=== PATIENT | female | born 1980 | race Caucasian/White ===

== ENCOUNTER 2017-03-14 07:10 | Day surgery (SDC) | payer BC ==
[2017-03-09 08:06] LABS: BUN (BLOOD UREA NITROGEN) 20 MG/DL (6-23); CALCIUM, SERUM 8.8 MG/DL (8.5-10.4); CHLORIDE, SERUM 106 MMOL/L (96-112); CO2 (CARBON DIOXIDE) 29 MMOL/L (24-34); CREATININE 0.76 MG/DL (0.55-1.02); GFR AFRICAN AMERICAN 118 ML/MIN (>=60); GFR NON AFRICAN AMERICAN 102 ML/MIN (>=60); GLUCOSE, SERUM 100 MG/DL (60-99); POTASSIUM, SERUM 3.5 MMOL/L (3.5-5.3); SODIUM, SERUM 138 MMOL/L (135-148)
--- NOTE | ~2017-03-14 | OP ---
Record Of Operation [facility] [address] [place]. [address] NAME: PAIGE GRANDE : [birth year] STATUS : [facility]#: [id number] AGE: 36 ADM/REG DATE : 03/14/17 MR#: [id number] REPORT SERV DATE: 03/14/17 DICTATED BY: JARRELL SANTA DATE: 03/14/17 REPORT STATUS : Draft TRANSCRIBED BY: PHYLLIS DATE: 03/14/17 DATE OF PROCEDURE: PREOPERATIVE DIAGNOSES: 1. L3-4 and L5-S1 facet arthropathy. 2. Status post fusion at L4-5. POSTOPERATIVE DIAGNOSES: 1. L3-4 and L5-S1 facet arthropathy. 2. Status post fusion at L4-5. PROCEDURE: 1. Microscopic navigation-assisted surgery. 2. Mini-open left and right L3-4 and L5-S1 medial branch and dorsal rhizotomy and ablation. SKY CAP: Toribio Reed. ANESTHESIA: General. ESTIMATED BLOOD LOSS: 20 mL. INDICATIONS FOR SURGERY: A 36-year-old female with prior L4-5 fusions elsewhere. The patient has developed severe adjacent segment degeneration at both L3-4 and L5-S1. She has severe disk degeneration. There is also marked facet arthropathy. She has predominantly back pain with some pseudoradicular pain, but does not have any major stenosis. She has tried all forms of conservative care. She had a fluoro-guided injection of the joint, which gave a dramatic improvement in pain both at L3-4 and L5-S1. To try to obviously bring about some form of relief and particularly to buy her extra time and essentially such a young age, I recommended the above surgery rather than additional thoughts of consideration of fusion. The patient voiced understanding and wanted to proceed. I did explain to her the risks, which include but not limited to infection. There could be no guarantee that this would give her significant relief. She may develop continued deterioration and often require additional surgery including up to arthrodesis. Perioperative complications such as UTI, PE, pneumonia, NV, CVA, etc., were explained. Consent form is signed. DESCRIPTION OF PROCEDURE: The patient was identified in preop holding area. Antibiotic prophylaxis was given. The patient was brought to the operative suite. General anesthetic including endotracheal intubation was administered. She was placed prone on a Darrell spine frame. Bony prominences were carefully padded. Thoracolumbar spine was scrubbed with Hibiclens solution. DuraPrep was painted. Sterile drapes were applied. Because of the complexity of surgery and the need to identify correct level of surgery intraoperatively as well as desire to carry out the safest most precise dissection, I felt intraoperative navigation was mandatory. Record Of Operation [facility] [address] [place] [id number] NAME: PAIGE GRANDE : [birth year] STATUS : [facility]#: [id number] AGE: 36 ADM/REG DATE : 03/14/17 MR#: [id number] REPORT SERV DATE: 03/14/17 DICTATED BY: JARRELL SANTA DATE: 03/14/17 REPORT STATUS : Draft TRANSCRIBED BY: PHYLLIS DATE: 03/14/17 A small stab wound was carried out at the right posterior superior iliac spine. A percutaneous pin with navigational frame attached was inserted in the PSIS. Intraoperative CT scan with O-arm was obtained. CT information used to register the navigational system. With navigational assistance, I identified initially the right L3-4. I carried out a 2.5 cm skin incision mcc between L3-4 and L5-S1 facet joints. I mobilized the skin proximal. I placed a blunt navigated probe through the fascia and muscle and docked over the facet joint. Muscle dilators were inserted followed by placement of a tubular retractor attached to an arm mount on the table. The microscope was sterilely draped and used throughout the remainder of the procedure. At the top of the facet joint just around the top of the pedicle of L4, the medial branch of the dorsal ramus was identified and ablated. A rhizotomy was completed removing a portion of the nerve. The wounds were irrigated. The retractor was removed. I then mobilized the skin distally. I placed a tubular retractor and again I did the same identical procedure on the right side at L5-S1. Again, the wounds irrigated. Finally, I moved to the left side, and with navigational assistance, I carried out the same 2.5 cm skin incision and placed a tubular retractor and carried out the same identification and ablation. Finally, the last level was the left L5-S1. The wound was irrigated. The retractor was removed. The fascial opening was closed with a single interrupted #1 Vicryl suture, subcutaneous tissue was closed with 2-0 Vicryl suture, and 2-0 vertical mattress nylon suture was used for skin closure. Sterile dressings were applied. The patient awakened, extubated, and taken to recovery room in satisfactory condition having tolerated procedure well. Sponge, needle, and counts were correct. No intraoperative complications noted. TRISH/MODFreedom Jarrell Santa D.O. / [id number] CC: Lawanda Patiño JUSTIN AARON
[~2017-03-14 07:10] MED LIST: ADDERALL20 MG PO; ADDERALL30 MG PO; ADVIL PO; CONTRAVE ER 8-1 EACH PO; FISH-EPA1000 MG PO; FLEX PO; LORTAB 5 PO; LYBREL PO; MOBIC15 MG PO; NEUR300 PO; OSTEO BI-FLEX1 EACH PO; PERCOCET 7.5/321 TAB PO; PERCOCET1 TA2 PO; TOPAMAX25 PO; TOPXL50 PO; ULTRAM ER200 MG PO; ULTRAM50 PO
== END 2017-03-14 15:01 | disposition home or self-care (01) ==
LOC: SDC 07:10
PROVIDERS: Orthopaedic Surgery Orthopaedic Surgery of the Spine
PROC: 3E0T3TZ Introduction of Destructive Agent into Peripheral Nerves and Plexi, Percutaneous Approach (ICD-10-PCS; principal; 2017-03-14 08:15)
DX: M12.88 Other specific arthropathies, not elsewhere classified, other specified site (principal); I10 Essential (primary) hypertension; E66.01 Morbid (severe) obesity due to excess calories; Z98.890 Other specified postprocedural states; Z88.8 Allergy status to other drugs, medicaments and biological substances
CPT/HCPCS: 80048; 84703; 93005; A9270-GY; J0690; J1885; J2250; J2270; J2274; J2405; J2710; J3010